=== PATIENT | female | born 1970 | race Caucasian/White ===

== ENCOUNTER 2017-11-19 06:43 | Emergency (ER) | payer OTHER, SELFPAY ==
[2017-11-19 06:50] VITALS: BP 105/67; PULSE 114; RESP 20; TEMP 36.8; O2SAT 100; BMI 24.3
[2017-11-19 07:36] LABS: Basophils % 0.1 % (0.1-2.0); Eosinophils % 0.1 % (0.1-12.0); Hematocrit 38.6 % (37.0-47.0); Lymphocytes # 0.8 K/mm3 (0.7-4.5); Lymphocytes % 3.7 K/mm3 (10-50); Mean Corpuscular HGB Conc 33.8 g/dL (31.8-35.4); Mean Corpuscular Hemoglobin 31.1 pg (27.0-31.2); Mean Platelet Volume 8.3 fl (7.4-10.4); Monocytes # 0.3 K/mm3 (0.1-1.0); Monocytes % 1.3 % (1.7-9.3); Neutrophils # 20.8 K/mm3 (1.8-7.8); Neutrophils % 94.9 % (37.0-80.0); Platelet Count 245 K/mm3 (142-424); Red Blood Count 4.19 M/mm3 (4.20-5.40); Red Cell Distribution Width 11.8 % (11.5-17.5)
[2017-11-19 07:40] LABS: White Blood Count 22.2 K/mm3 (4.8-10.8)
[2017-11-19 07:41] LABS: Alanine Aminotransferase 74 U/L (12-78); Albumin Level 3.7 gm/dL (3.4-5.0); Albumin/Globulin Ratio 0.9 (1.1-1.8); Alkaline Phosphatase 134 U/L (46-116); Amylase 40 U/L (25-125); Anion Gap 16.2 mEq/L (5-15); Aspartate Amino Transferase 31 U/L (15-37); Bilirubin,Total 1.5 mg/dL (0.2-1.0); Blood Urea Nitrogen 20 mg/dL (7-18); Calcium 9.2 mg/dL (8.5-10.1); Carbon Dioxide 23 mmol/L (21.0-32.0); Chloride 100 mmol/L (98-107); Creatinine Clearance Estimated 105 mL/min (0-300); Creatinine,Serum 0.75 mg/dL (0.55-1.02); Estimated Glomerular Filt Rate 82 ml/min (>60); GFR (African American) 100 ML/MIN (>60); Globulin 4.3 gm/dl (1.3-3.2); Glucose 134 mg/dL (74-106); Lipase 57 u/L (73-393); Potassium 3.2 mmoL/L (3.5-5.1); Sodium 136 mmol/L (136-145)
[2017-11-19 07:42] LABS: MANUAL DIFFERENTIAL MANUAL DIFFERENTIAL (MANUAL DIFF)
[2017-11-19 07:50] LABS: Microscopic, Urine URINE MICROSCOPIC (MICROSCOPIC)
[2017-11-19 07:55] LABS: Appearance,Urine SL CLOUDY (Clear); Blood, Urine 2+ (Negative); Color,Urine BROWN (Yellow); Glucose,Urine (UA) Negative (Negative); Ketones,Urine 1+ (Negative); Leukocyte Esterase,Urine 2+ (Negative); Nitrate,Urine Negative (Negative); PH,Urine 5.5 (5.0-8.5); Protein,Urine TRACE (Negative); Urine Pregnancy, HCG Qual. Negative (Negative); Urobilinogen,Urine 0.2 EU/dl (0.2)
[2017-11-19 08:04] LABS: Lymphocytes % 6 % (10-50); Monocytes % 1 % (2-9); Neutrophils % 93 % (42-76); Platelet Estimate Normal; RBC Morphology Normal; Total Cells Counted 100
[2017-11-19 08:07] LABS: Bilirubin,Urine Negative (Negative)
[2017-11-19 08:18] LABS: Bacteria,Urine 2+ /lpf; Mucus,Urine 2+ /lpf; WBC,Urine 20-50 #/hpf (0-3)
--- NOTE | 2017-11-19 08:19 | PC.NURSE ---
PT SET UP FOR PELVIC EXAM.
--- NOTE | 2017-11-19 08:31 | HMH.EDABDPAI ---
ED Disposition Clinical Impression: Abdominal pain, Enteritis Disposition: Xfer Critical Access Hosp Condition on Discharge: Good Instructions: DI for Acute Abdomen Referrals: Alexey Ashley MD [Primary Care Provider] - - Critical Care Critical Care Time: No Attestation: On 11/19/17, the high probability of a clinically significant, sudden or life threatening deterioration of the following system(s) required my full and direct attention, intervention and personal management. The time I documented below is in addition to time spent performing reported procedures but includes the following listed in this critical care notation. Medical Decision Making - Garrett Inquiry Pt receiving controlled substance: No Garrett was queried for this patient: No Vital Signs: 11/19/17 06:50 11/19/17 10:14 Temperature 98.3 F Temperature Source Oral Pulse Rate [Right Radial] 114 H 102 H Respiratory Rate 20 20 Blood Pressure [Right Arm] 105/67 107/55 Blood Pressure Mean [Right Arm] 79 72 Blood Pressure Source [Right Arm] Automatic Cuff Automatic Cuff Blood Pressure Position [Right Arm] Sitting Sitting 02 Sat by Pulse Oximetry 100 98 Oxygen Delivery Method Room Air Room Air - Lab Data Lab results reviewed: Yes: I reviewed the patient's lab results. Lab Results 11/19/17 07:05: WBC 22.2 H*, RBC 4.19 L, Hgb 13.0, Hct 38.6, MCV 92.0, MCH 31.1, MCHC 33.8, RDW 11.8, Plt Count 245, MPV 8.3, Neut % (Auto) 94.9 H, Lymph % (Auto) 3.7 L, [place] % (Auto) 1.3 L, Eos % (Auto) 0.1, Baso % (Auto) 0.1, Neut # (Auto) 20.8 H, Lymph # (Auto) 0.8, [place] # (Auto) 0.3, Eos # (Auto) 0.0, Baso # (Auto) 0.0, Total Counted 100, Neutrophils % (Manual) 93 H, Lymphocytes % (Manual) 6 L, Monocytes % (Manual) 1 L, Platelet Estimate Normal, RBC Morphology Normal 11/19/17 07:05: Sodium 136, Potassium 3.2 L, Chloride 100, Carbon Dioxide 23, Anion Gap 16.2 H, BUN 20 H, Creatinine 0.75, Estimated Creat Clear 105, Estimated GFR 82, Est GFR ( Amer) 100, Glucose 134 H, Calcium 9.2, Total Bilirubin 1.5 H, AST 31, ALT 74, Alkaline Phosphatase 134 H, Total Protein 8.0, Albumin 3.7, Globulin 4.3 H, Albumin/Globulin Ratio 0.9 L, Amylase 40, Lipase 57 L 11/19/17 07:45: Urine Color Brown, Urine Appearance Sl cloudy, Urine pH 5.5, Ur Specific [place] 1.020, Urine Protein Trace, Urine Glucose (UA) Negative, Urine Ketones 1+, Urine Blood 2+, Urine Nitrate Negative, Urine Bilirubin Negative, Urine Urobilinogen 0.2, Ur Leukocyte Esterase 2+ A, Urine RBC 10-20, Urine WBC 20-50, Ur Squamous Epith Cells 3-5, Urine Bacteria 2+, Urine Mucus 2+ 11/19/17 07:45: Urine HCG, Qual Negative 11/19/17 09:25: Lactic Acid 1.2 Result diagrams: 11/19/17 07:05 11/19/17 07:05 Orders (Tests/Meds): ED MEDICATIONS Generic Name Dose Route Start Last Admin Trade Name Freq PRN Reason Stop Dose Admin Piperacillin Sod/Tazobactam 50 mls @ 100 mls/hr 11/19/17 09:45 11/19/17 09:40 Sod 3.375 gm/ Sodium Chloride IV 12/03/17 09:44 100 mls/hr Q6H WHITNEY Administration Protocol Discontinued Medications Generic Name Dose Route Start Last Admin Trade Name Freq PRN Reason Stop Dose Admin Diatrizoate Meglum/Diatrizoate Sod 30 ml 11/19/17 09:19 11/19/17 09:27 Gastrografin 66%-10% 30ml PO 11/19/17 09:20 30 ml ONCE ONE Administration Sodium Chloride 1,000 mls @ 999 mls/hr 11/19/17 07:00 11/19/17 07:14 Sod Chlor 0.9% 1000ml Bag IV 11/19/17 08:00 999 mls/hr .Q1H1M WHITNEY Administration Iopamidol 75 ml 11/19/17 11:13 11/19/17 11:14 [id number]; 75ml Vial IV 11/19/17 11:14 75 ml ONCE ONE Administration Ketorolac Tromethamine 30 mg 11/19/17 06:58 11/19/17 07:14 Toradol 30mg/Ml Vial IV 11/19/17 06:59 30 mg ONCE ONE Administration Morphine Sulfate 2 mg 11/19/17 08:35 11/19/17 08:40 Morphine 2mg/Ml Syringe IV 11/19/17 08:36 2 mg ONCE ONE Administration Morphine Sulfate 2 mg 11/19/17 10:08 11/19/17 10:15 Morphine 2mg/Ml Syringe IV
--- NOTE | 2017-11-19 08:34 | ED_ITS ---
ED Disposition Clinical Impression: Abdominal pain, Enteritis Disposition: Xfer Critical Access Hosp Condition on Discharge: Good Instructions: DI for Acute Abdomen Referrals: Alexey Ashley MD [Primary Care Provider] - - Critical Care Critical Care Time: No Attestation: On 11/19/17, the high probability of a clinically significant, sudden or life threatening deterioration of the following system(s) required my full and direct attention, intervention and personal management. The time I documented below is in addition to time spent performing reported procedures but includes the following listed in this critical care notation. Medical Decision Making - Garrett Inquiry Pt receiving controlled substance: No Garrett was queried for this patient: No Vital Signs: 11/19/17 06:50 11/19/17 10:14 Temperature 98.3 F Temperature Source Oral Pulse Rate [Right Radial] 114 H 102 H Respiratory Rate 20 20 Blood Pressure [Right Arm] 105/67 107/55 Blood Pressure Mean [Right Arm] 79 72 Blood Pressure Source [Right Arm] Automatic Cuff Automatic Cuff Blood Pressure Position [Right Arm] Sitting Sitting 02 Sat by Pulse Oximetry 100 98 Oxygen Delivery Method Room Air Room Air - Lab Data Lab results reviewed: Yes: I reviewed the patient's lab results. Lab Results 11/19/17 07:05: WBC 22.2 H*, RBC 4.19 L, Hgb 13.0, Hct 38.6, MCV 92.0, MCH 31.1 , MCHC 33.8, RDW 11.8, Plt Count 245, MPV 8.3, Neut % (Auto) 94.9 H, Lymph % ( Auto) 3.7 L, [place] % (Auto) 1.3 L, Eos % (Auto) 0.1, Baso % (Auto) 0.1, Neut # ( Auto) 20.8 H, Lymph # (Auto) 0.8, [place] # (Auto) 0.3, Eos # (Auto) 0.0, Baso # ( Auto) 0.0, Total Counted 100, Neutrophils % (Manual) 93 H, Lymphocytes % (Manual ) 6 L, Monocytes % (Manual) 1 L, Platelet Estimate Normal, RBC Morphology Normal 11/19/17 07:05: Sodium 136, Potassium 3.2 L, Chloride 100, Carbon Dioxide 23, Anion Gap 16.2 H, BUN 20 H, Creatinine 0.75, Estimated Creat Clear 105, Estimated GFR 82, Est GFR ( Amer) 100, Glucose 134 H, Calcium 9.2, Total Bilirubin 1.5 H, AST 31, ALT 74, Alkaline Phosphatase 134 H, Total Protein 8.0, Albumin 3.7, Globulin 4.3 H, Albumin/Globulin Ratio 0.9 L, Amylase 40, Lipase 57 L 11/19/17 07:45: Urine Color Brown, Urine Appearance Sl cloudy, Urine pH 5.5, Ur Specific [place] 1.020, Urine Protein Trace, Urine Glucose (UA) Negative, Urine Ketones 1+, Urine Blood 2+, Urine Nitrate Negative, Urine Bilirubin Negative, Urine Urobilinogen 0.2, Ur Leukocyte Esterase 2+ A, Urine RBC 10-20, Urine WBC 20-50, Ur Squamous Epith Cells 3-5, Urine Bacteria 2+, Urine Mucus 2+ 11/19/17 07:45: Urine HCG, Qual Negative 11/19/17 09:25: Lactic Acid 1.2 Result diagrams: 11/19/17 07:05 11/19/17 07:05 Orders (Tests/Meds): ED MEDICATIONS Generic Name Dose Route Start Last Admin Trade Name Freq PRN Reason Stop Dose Admin Piperacillin Sod/Tazobactam 50 mls @ 100 mls/hr 11/19/17 09:45 11/19/17 09:40 Sod 3.375 gm/ Sodium Chloride IV 12/03/17 09:44 100 mls/hr Q6H WHITNEY Administration Protocol Discontinued Medications Generic Name Dose Route Start Last Admin Trade Name Freq PRN Reason Stop Dose Admin Diatrizoate Meglum/Diatrizoate Sod 30 ml 11/19/17 09:19 11/19/17 09:27 Gastrografin 66%-10% 30ml PO 11/19/17 09:20 30 ml ONCE ONE Administration Sodium Chloride 1,000 mls @ 999 mls/hr 11/19/17 07:00 11/19/17 07:14 Sod Chlor 0.9%
--- NOTE | 2017-11-19 08:36 | US_ITS ---
US transvaginal HISTORY: Pelvic pain ITS.REASON: PID r/o abcess ORDERING PHYSICIAN: Senthil Mckeon MD PATIENT AGE: 47 years COMPARISON: None FINDINGS: The uterus is 7 x 4 x 5 cm with a combined endometrial thickness of 4 mm. There are 2 heterogeneous areas of echogenicity within the uterus one in the body posteriorly at 2.7 x 1.4 cm and one in the fundus anteriorly at 2 x 2 cm consistent with fibroids. Nabothian cyst is present in the cervix at 12 mm. The left ovary is 2.5 x 1.8 cm and contains a 0.8 cm cyst. The right ovary is 18 x 19 mm and contains small follicles measuring up to 8 mm. There is complex decreased echogenicity in the right lower quadrant probably corresponding fluid-containing bowel with thickened wall. CT scan suggested for more thorough evaluation. Cannot exclude abscess. IMPRESSION: 1. Uterine fibroids. 2. Small bilateral ovarian follicles. 3. Complex decreased echogenicity in the right lower quadrant probably corresponding fluid-containing bowel with thickened wall. CT scan suggested for more thorough evaluation. Cannot exclude abscess.
--- NOTE | 2017-11-19 09:18 | CT_ITS ---
CT abdomen pelvis w con CLINICAL INDICATION: Right lower quadrant pain and tenderness, abnormal pelvic ultrasound with bowel thickening versus abscess in the right lower quadrant ITS.REASON: bowel inflamation on US per rads ORDERING PHYSICIAN: Senthil Mckeon MD PATIENT AGE: 47 years COMPARISON: CT scan of 02/16/2016 TECHNIQUE: Axial images obtained with sagittal and coronal reformats. All CT scans at the facility use one or more dose reduction, viz: automated exposure control; ma/kV adjustment per patient size (including targeted exams where dose is matched to indication; i.e. head); or iterative reconstruction technique. PROCEDURE: Oral Contrast: Gastroview IV Contrast: 75 mL's of [id number]. FINDINGS: Lung bases are clear. The spleen, adrenal glands, and pancreas are unremarkable. There has been prior cholecystectomy. No ductal dilatation. There is a 5 mm isodense in the right hepatic lobe posteriorly nonspecific too small to categorize and may be due to small cyst. Duodenal diverticulum projects medially toward the head of the pancreas consistent with an incidental finding. No renal mass or hydronephrosis. There are nonobstructing bilateral punctate renal calculi measuring up to 4 mm in the lower pole on the right and 4 mm in the mid polar region on the left. There is a 10 mm isodensity involving the antra aspect of the left kidney probably due to small cyst. No ureteral calculi. Unremarkable appendix. There is thickening of the small bowel loops involving the distal and terminal ileum corresponding to the abnormality noted on the ultrasound. No abscess is evident. There is a small amount fluid in the pelvis. There is mild thickening also involving the jejunum in the upper abdomen There is mild chronic wedging involving L1 and there is an old defect within the proximal right femur from prior prosthesis. IMPRESSION: 1. There is thickening of the distal end terminal ileum consistent with enteritis could be infectious or inflammatory. There is also mild thickening of the jejunum in the upper abdomen. Normal amount fluid in the pelvis 2. No abscess. 3. Unremarkable appendix. 4. Nonobstructing bilateral renal calculi
[2017-11-19 09:56] LABS: Lactic Acid 1.2 mmol/L (0.4-2.0)
[2017-11-19 10:14] VITALS: BP 107/55; PULSE 102; RESP 20; O2SAT 98
--- NOTE | 2017-11-19 12:25 | PC.NURSE ---
DR PRADHAN PHONE WITH DR MARTEL AT AT THIS TIME
[2017-11-19 14:17] VITALS: BP 91/64; PULSE 100; RESP 20; TEMP 37.3; O2SAT 100
[2017-11-19 14:39] VITALS: BP 91/54; PULSE 62; RESP 20; TEMP 36.4; O2SAT 97
[2017-11-23 15:38] LABS: Neisseria gonorrhoeae, NAA Positive (Negative)
== END 2017-11-19 14:41 | disposition short-term general hospital (02) ==
PROVIDERS: Emergency Medicine; Emergency Provider Family Medicine; Family Provider Family Medicine; PCP Family Medicine
DX: K52.9 Noninfective gastroenteritis and colitis, unspecified (principal); N30.00 Acute cystitis without hematuria; B96.20 Unspecified Escherichia coli [E. coli] as the cause of diseases classified elsewhere
CPT/HCPCS: 36415; 74177; 76830; 80053; 81001; 81025; 82150; 83605; 83690; 85007; 85025; 87040; 87086; 87088; 87186; 87210; 87220; 87491; 87591; 96365; 96366; 96367; 96375; 96376; 99285; J2405; J2543; Q9967

== ENCOUNTER 2017-11-22 17:07 | Observation (INO) | payer OTHER, SELFPAY ==
[2017-11-22 17:23] VITALS: RESP 18; O2SAT 95; BMI 24.3
--- NOTE | 2017-11-22 17:53 | HMH.EDNVD ---
ED Disposition Clinical Impression: Enteritis, Dehydration Intractable nausea and vomiting Qualifiers: Vomiting type: unspecified Qualified Code(s): R11.2 - Nausea with vomiting, unspecified UTI (urinary tract infection) Qualifiers: Urinary tract infection type: site unspecified Hematuria presence: without hematuria Qualified Code(s): N39.0 - Urinary tract infection, site not specified Disposition: Still a Patient Condition on Discharge: Serious Referrals: Alxeey Ashley MD [Primary Care Provider] - Time of Disposition: 18:50 - Critical Care Critical Care Time: No Attestation: On 11/22/17, the high probability of a clinically significant, sudden or life threatening deterioration of the following system(s) required my full and direct attention, intervention and personal management. The time I documented below is in addition to time spent performing reported procedures but includes the following listed in this critical care notation. Medical Decision Making - Medical Records Medical records reviewed: Yes: I reviewed the patient's medical records. - Garrett Inquiry Pt receiving controlled substance: No Vital Signs: 11/22/17 17:23 Respiratory Rate 18 02 Sat by Pulse Oximetry 95 Oxygen Delivery Method Room Air - Lab Data Lab results reviewed: Yes: I reviewed the patient's lab results. Lab Results 11/22/17 17:45: WBC 8.9, RBC 3.72 L, Hgb 11.3 L, Hct 34.7 L, MCV 93.5, MCH 30.5, MCHC 32.6, RDW 11.9, Plt Count 235, MPV 9.4, Neut % (Auto) 89.5 H, Lymph % (Auto) 6.6 L, [place] % (Auto) 3.6, Eos % (Auto) 0.2, Baso % (Auto) 0.1, Neut # (Auto) 7.9 H, Lymph # (Auto) 0.6 L, [place] # (Auto) 0.3, Eos # (Auto) 0.0, Baso # (Auto) 0.0, Total Counted 100, Neutrophils % (Manual) 92 H, Lymphocytes % (Manual) 5 L, Monocytes % (Manual) 3, Platelet Estimate Normal 11/22/17 17:45: Sodium 145, Potassium 3.1 L, Chloride 106, Carbon Dioxide 26, Anion Gap 16.1 H, BUN 18, Creatinine 0.71, Estimated Creat Clear 111, Estimated GFR 88, Est GFR ( Amer) 106, Glucose 148 H, Calcium 9.3, Total Bilirubin 0.6, AST 16, ALT 52, Alkaline Phosphatase 166 H, Total Protein 7.6, Albumin 3.0 L, Globulin 4.6 H, Albumin/Globulin Ratio 0.7 L, Amylase 36, Lipase 74 Result diagrams: 11/22/17 17:45 11/22/17 17:45 Orders (Tests/Meds): ED MEDICATIONS Generic Name Dose Route Start Last Admin Trade Name Freq PRN Reason Stop Dose Admin Sodium Chloride 1,000 mls @ 999 mls/hr 11/22/17 18:45 Sod Chlor 0.9% 1000ml Bag IV 11/22/17 19:45 .Q1H1M WHITNEY Ketorolac Tromethamine 30 mg 11/22/17 19:00 Toradol 30mg/Ml Vial IV 12/22/17 18:59 Q6H PRN pain Discontinued Medications Generic Name Dose Route Start Last Admin Trade Name Freq PRN Reason Stop Dose Admin Ketorolac Tromethamine 30 mg 11/22/17 17:54 11/22/17 18:38 Toradol 30mg/Ml Vial IV 11/22/17 17:55 30 mg ONCE ONE Administration Morphine Sulfate 2 mg 11/22/17 18:09 11/22/17 18:10 Morphine 2mg/2ml Syringe IV 11/22/17 18:10 2 mg ONCE ONE Administration Promethazine HCl 25 mg 11/22/17 17:52 11/22/17 18:08 Phenergan 25mg/Ml 1ml Vial IV 11/22/17 17:53 25 mg ONCE ONE Administration Promethazine HCl 25 mg 11/22/17 18:39 11/22/17 18:40 Phenergan 25mg/Ml 1ml Vial IV 11/22/17 18:40 25 mg ONCE ONE Administration Sodium Chloride 25 ml 11/22/17 17:52 11/22/17 18:08 Sod Chlor 0.9% 25ml Bag IV 11/22/17 17:53 25 ml ONCE ONE Administration Sodium Chloride 25 ml 11/22/17 18:39 11/22/17 18:40 Sod Chlor 0.9% 25ml Bag IV 11/22/17 18:40 25 ml ONCE ONE Administration ORDERS Category Date Time Status Lactic Acid Stat Lab 11/22/17 17:54 Ordered UDS [Drug Screen,Urine] Stat Lab 11/22/17 17:39 Ordered Urinalysis and Microscopic Stat Lab 11/22/17 17:38 Ordered Urine , HCG Qual Stat Lab 11/22/17 17:38 Ordered Blood Culture Stat Micro 11/22/17 17:53 Ordered Urine Culture Stat Micro 11/22/17 17
[2017-11-22 17:55] LABS: Basophils % 0.1 % (0.1-2.0); Eosinophils % 0.2 % (0.1-12.0); Hematocrit 34.7 % (37.0-47.0); Hemoglobin 11.3 g/dL (12.2-16.2); Lymphocytes # 0.6 K/mm3 (0.7-4.5); Lymphocytes % 6.6 K/mm3 (10-50); Mean Corpuscular HGB Conc 32.6 g/dL (31.8-35.4); Mean Corpuscular Hemoglobin 30.5 pg (27.0-31.2); Mean Corpuscular Volume 93.5 fl (81-99); Mean Platelet Volume 9.4 fl (7.4-10.4); Monocytes # 0.3 K/mm3 (0.1-1.0); Monocytes % 3.6 % (1.7-9.3); Neutrophils # 7.9 K/mm3 (1.8-7.8); Neutrophils % 89.5 % (37.0-80.0); Platelet Count 235 K/mm3 (142-424); Red Blood Count 3.72 M/mm3 (4.20-5.40); Red Cell Distribution Width 11.9 % (11.5-17.5); White Blood Count 8.9 K/mm3 (4.8-10.8)
--- NOTE | 2017-11-22 17:56 | ED_ITS ---
ED Disposition Clinical Impression: Enteritis, Dehydration Intractable nausea and vomiting Qualifiers: Vomiting type: unspecified Qualified Code(s): R11.2 - Nausea with vomiting, unspecified UTI (urinary tract infection) Qualifiers: Urinary tract infection type: site unspecified Hematuria presence: without hematuria Qualified Code(s): N39.0 - Urinary tract infection, site not specified Disposition: Still a Patient Condition on Discharge: Serious Referrals: Alexey Ashley MD [Primary Care Provider] - Time of Disposition: 18:50 - Critical Care Critical Care Time: No Attestation: On 11/22/17, the high probability of a clinically significant, sudden or life threatening deterioration of the following system(s) required my full and direct attention, intervention and personal management. The time I documented below is in addition to time spent performing reported procedures but includes the following listed in this critical care notation. Medical Decision Making - Medical Records Medical records reviewed: Yes: I reviewed the patient's medical records. - Garrett Inquiry Pt receiving controlled substance: No Vital Signs: 11/22/17 17:23 Respiratory Rate 18 02 Sat by Pulse Oximetry 95 Oxygen Delivery Method Room Air - Lab Data Lab results reviewed: Yes: I reviewed the patient's lab results. Lab Results 11/22/17 17:45: WBC 8.9, RBC 3.72 L, Hgb 11.3 L, Hct 34.7 L, MCV 93.5, MCH 30.5 , MCHC 32.6, RDW 11.9, Plt Count 235, MPV 9.4, Neut % (Auto) 89.5 H, Lymph % ( Auto) 6.6 L, [place] % (Auto) 3.6, Eos % (Auto) 0.2, Baso % (Auto) 0.1, Neut # ( Auto) 7.9 H, Lymph # (Auto) 0.6 L, [place] # (Auto) 0.3, Eos # (Auto) 0.0, Baso # ( Auto) 0.0, Total Counted 100, Neutrophils % (Manual) 92 H, Lymphocytes % (Manual ) 5 L, Monocytes % (Manual) 3, Platelet Estimate Normal 11/22/17 17:45: Sodium 145, Potassium 3.1 L, Chloride 106, Carbon Dioxide 26, Anion Gap 16.1 H, BUN 18, Creatinine 0.71, Estimated Creat Clear 111, Estimated GFR 88, Est GFR ( Amer) 106, Glucose 148 H, Calcium 9.3, Total Bilirubin 0.6, AST 16, ALT 52, Alkaline Phosphatase 166 H, Total Protein 7.6, Albumin 3.0 L, Globulin 4.6 H, Albumin/Globulin Ratio 0.7 L, Amylase 36, Lipase 74 Result diagrams: 11/22/17 17:45 11/22/17 17:45 Orders (Tests/Meds): ED MEDICATIONS Generic Name Dose Route Start Last Admin Trade Name Freq PRN Reason Stop Dose Admin Sodium Chloride 1,000 mls @ 999 mls/hr 11/22/17 18:45 Sod Chlor 0.9% 1000ml Bag IV 11/22/17 19:45 .Q1H1M WHITNEY Ketorolac Tromethamine 30 mg 11/22/17 19:00 Toradol 30mg/Ml Vial IV 12/22/17 18:59 Q6H PRN pain Discontinued Medications Generic Name Dose Route Start Last Admin Trade Name Freq PRN Reason Stop Dose Admin Ketorolac Tromethamine 30 mg 11/22/17 17:54 11/22/17 18:38 Toradol 30mg/Ml Vial IV 11/22/17 17:55 30 mg ONCE ONE Administration Morphine Sulfate 2 mg 11/22/17 18:09 11/22/17 18:10 Morphine 2mg/2ml Syringe IV 11/22/17 18:10 2 mg ONCE ONE Administration Promethazine HCl 25 mg 11/22/17 17:52 11/22/17 18:08 Phenergan 25mg/Ml 1ml Vial IV 11/22/17 17:53 25 mg ONCE ONE Administration Promethazine HCl 25 mg 11/22/17 18:39 11/22/17 18:40 Phenergan 25mg/Ml 1ml Vial IV 11/22/17 18:40 25 mg ONCE ONE Administration Sodium Ch
[2017-11-22 18:04] LABS: Alanine Aminotransferase 52 U/L (12-78); Albumin/Globulin Ratio 0.7 (1.1-1.8); Alkaline Phosphatase 166 U/L (46-116); Amylase 36 U/L (25-125); Anion Gap 16.1 mEq/L (5-15); Aspartate Amino Transferase 16 U/L (15-37); Bilirubin,Total 0.6 mg/dL (0.2-1.0); Blood Urea Nitrogen 18 mg/dL (7-18); Calcium 9.3 mg/dL (8.5-10.1); Carbon Dioxide 26 mmol/L (21.0-32.0); Chloride 106 mmol/L (98-107); Creatinine Clearance Estimated 111 mL/min (0-300); Creatinine,Serum 0.71 mg/dL (0.55-1.02); Estimated Glomerular Filt Rate 88 ml/min (>60); GFR (African American) 106 ML/MIN (>60); Globulin 4.6 gm/dl (1.3-3.2); Glucose 148 mg/dL (74-106); Lipase 74 u/L (73-393); Potassium 3.1 mmoL/L (3.5-5.1); Sodium 145 mmol/L (136-145); Total Protein,Serum 7.6 gm/dL (6.4-8.2)
[2017-11-22 18:08] LABS: MANUAL DIFFERENTIAL MANUAL DIFFERENTIAL (MANUAL DIFF)
[2017-11-22 18:58] LABS: Lymphocytes % 5 % (10-50); Monocytes % 3 % (2-9); Neutrophils % 92 % (42-76); Total Cells Counted 100
[2017-11-22 18:59] LABS: Platelet Estimate Normal
--- NOTE | 2017-11-22 20:00 | PC.NURSE ---
Called report to [facility]
[2017-11-22 20:33] VITALS: BMI 24.3
[2017-11-22 20:45] VITALS: BP 133/73; PULSE 70; RESP 16; TEMP 37.8; O2SAT 94; BMI 25.1
[2017-11-22 20:53] VITALS: BP 120/60; PULSE 73; RESP 14; TEMP 37.3; O2SAT 96
[2017-11-22 21:07] LABS: Lactic Acid 1.1 mmol/L (0.4-2.0)
[2017-11-22 23:25] LABS: Microscopic, Urine URINE MICROSCOPIC (MICROSCOPIC)
[2017-11-22 23:29] LABS: Appearance,Urine CLEAR (Clear); Bilirubin,Urine Negative (Negative); Blood, Urine Negative (Negative); Color,Urine YELLOW (Yellow); Glucose,Urine (UA) Negative (Negative); Ketones,Urine 3+ (Negative); Leukocyte Esterase,Urine Negative (Negative); Nitrate,Urine Negative (Negative); Protein,Urine TRACE (Negative); Specific Gravity, Urine 1.025 (1.005-1.030); Urobilinogen,Urine 0.2 EU/dl (0.2)
[2017-11-22 23:36] LABS: Amphetamine/Metha Screen,Urine Negative ng/mL (<1000); Barbiturates Screen,Urine Negative ng/mL (<200); Benzodiazepines Screen,Urine Negative ng/mL (200); Cannabinoid Screen,Urine Positive ng/mL (<50); Cocaine Screen,Urine Negative ng/g (<300); Methadone Screen,Urine Negative ng/mL (<300); Opiate Screen,Urine Positive ng/mL (<300); Phencyclidine Screen,Urine Negative ng/mL (<25)
[2017-11-22 23:49] LABS: Urine Pregnancy, HCG Qual. Negative (Negative)
[2017-11-23 01:45] LABS: Bacteria,Urine Trace /lpf; RBC,Urine Occasional #/hpf (0-3); Squamous Epithelial Cell,Urine Occasional #/hpf (0-5)
[2017-11-23 04:04] VITALS: BP 126/64; PULSE 72; RESP 16; TEMP 37.4; O2SAT 94
--- NOTE | 2017-11-23 04:15 | PC.NURSE ---
Patient was a new admit this shift. Complaints of n/v/d. Is dehydrated and has a uti. Spouse states vomiting has been almost constant since yesterday. States was at on Wednesday, pt was started on antibiotics. Has had abdominal pain this shift. Vomited one time. Has had Toradol, Tylenol, Zofran and Phenergan. Pt is resting at this time. Lungs are clear, resp even and non labored. Abd is tender. Strong pulses, cap refill < 3 sec. Iv is patent, states has no needs at this time. Educated on all medication and pain management. Bed locked in low position, side rails up x 2, call light within reach. Encouraged to call staff if any needs.
[2017-11-23 07:37] VITALS: BP 121/53; PULSE 72; RESP 18; TEMP 37.8; O2SAT 98
--- NOTE | 2017-11-23 08:05 | HMH.HPDC ---
General - General Admission date: 11/22/17 Discharge date: 11/23/17 *Admission Date: 11/23/17 *Chief complaint: Nausea/vomiting/urinary tract infection *History of present illness: 47-year-old white female with significant urinary tract infection who was transferred from this emergency department to the [facility] emergency department for uncertain reasons the last visit here and then was discharged from with triple antibiotic therapy including Flagyl, for enteritis. She has been home and not feeling much better. Came back to the emergency department last night, culture has returned from her original visit here showing E. coli, sensitive to fluoroquinolones. She had vomiting and mild dehydration. She was placed in observation status for IV fluids and an initial treatment of Levaquin intravenously. This morning she is feeling better, has been able to keep down clear liquids. Has had one episode of vomiting through the night, less pain. And is wishing to be discharged. [facility] History Medical History: Reports:: Arrhythmia Denies:: Cancer, Diabetes Mellitus Type 1, Diabetes Mellitus Type 2, MRSA Other Surgeries: Yes: Cholecystectomy Amputation: No Fractures: No - *Social History Educational Level: Completed College Smoking Status: Never smoker Alcohol Intake: never Substance Use Type: marijuana Occupational Status: employed Housing: house Household Members: spouse - Psychiatric History Expresses thoughts of harming self/others: None Suicide Plan Description: No Plan Review of Systems - Review of Systems Review of systems:: unable to obtain, other, pertinent systems reviewed and negative unless documented below Exam Vital signs and Labs for Last 24 Hours: Temp Pulse Resp BP Pulse Ox 100.0 F H 72 18 121/53 98 11/23/17 07:37 11/23/17 07:37 11/23/17 07:37 11/23/17 07:37 11/23/17 07:37 Laboratory Results - last 24 hr 11/22/17 23:18: Urine HCG, Qual Negative 11/22/17 23:18: Urine Opiates Screen Positive H, Ur Barbituates Screen Negative, Ur Phencyclidine Scrn Negative, Ur Amphetamines Screen Negative, U Methamphetamines Scrn Negative, U Benzodiazepines Scrn Negative, Urine Cocaine Screen Negative, U Marijuana (THC) Screen Positive H 11/22/17 23:23: Urine Color Yellow, Urine Appearance Clear, Urine pH 6.0, Ur Specific [place] 1.025, Urine Protein Trace, Urine Glucose (UA) Negative, Urine Ketones 3+, Urine Blood Negative, Urine Nitrate Negative, Urine Bilirubin Negative, Urine Urobilinogen 0.2, Ur Leukocyte Esterase Negative, Urine RBC Occasional, Urine WBC 5-10, Ur Squamous Epith Cells Occasional, Urine Bacteria Trace I & O for Last 24 hours: Intake & Output 11/20/17 11/21/17 11/22/17 11/23/17 11:59 11:59 11:59 11:59 Intake Total 1083 / 1083 Output Total 400 / 400 Balance 683 / 683 Narrative: Patient is sitting up in bed, pleasant, alert. No distress. Lungs are clear, heart rate regular, minimal CVA tenderness. Abdomen is soft, no edema or clubbing. Hospital Course Hospital Course: Patient admitted overnight, feels better. Patient will be charged home with levofloxacin, she will continue her Flagyl, she has Zofran at home. Follow-up as scheduled. Results Labs on day of discharge: Labs from last 24 hours 11/22/17 11/22/17 11/22/17 23:23 23:18 23:18 Urine Color Yellow Urine Appearance Clear Urine pH 6.0 Ur Specific [place] 1.025 Urine Protein Trace Urine Glucose (UA) Negative Urine Ketones 3+ Urine Blood Negative Urine Nitrate Negative Urine Bilirubin Negative Urine Urobilinogen 0.2 Ur Leukocyte Esterase Negative Urine RBC Occasional Urine WBC 5-10 Ur Squamous Epith Cells Occasional Urine Bacteria Trace Urine HCG, Qual Negative Urine Opiates Screen Positive H Ur Barbituates Screen Negative Ur Phencyclidine Scrn Negative Ur Amphetamines Screen Negative U Methamphetamines Scrn Nega
--- NOTE | 2017-11-23 08:09 | P.HPDS_ITS ---
General - General Admission date: 11/22/17 Discharge date: 11/23/17 *Admission Date: 11/23/17 *Chief complaint: Nausea/vomiting/urinary tract infection *History of present illness: 47-year-old white female with significant urinary tract infection who was transferred from this emergency department to the [facility] emergency department for uncertain reasons the last visit here and then was discharged from with triple antibiotic therapy including Flagyl, for enteritis. She has been home and not feeling much better. Came back to the emergency department last night, culture has returned from her original visit here showing E. coli, sensitive to fluoroquinolones. She had vomiting and mild dehydration. She was placed in observation status for IV fluids and an initial treatment of Levaquin intravenously. This morning she is feeling better, has been able to keep down clear liquids. Has had one episode of vomiting through the night, less pain. And is wishing to be discharged. [facility] History Medical History: Reports:: Arrhythmia Denies:: Cancer, Diabetes Mellitus Type 1, Diabetes Mellitus Type 2, MRSA Other Surgeries: Yes: Cholecystectomy Amputation: No Fractures: No - *Social History Educational Level: Completed College Smoking Status: Never smoker Alcohol Intake: never Substance Use Type: marijuana Occupational Status: employed Housing: house Household Members: spouse - Psychiatric History Expresses thoughts of harming self/others: None Suicide Plan Description: No Plan Review of Systems - Review of Systems Review of systems:: unable to obtain, other, pertinent systems reviewed and negative unless documented below Exam Vital signs and Labs for Last 24 Hours: Temp Pulse Resp BP Pulse Ox 100.0 F H 72 18 121/53 98 11/23/17 07:37 11/23/17 07:37 11/23/17 07:37 11/23/17 07:37 11/23/17 07:37 Laboratory Results - last 24 hr 11/22/17 23:18: Urine HCG, Qual Negative 11/22/17 23:18: Urine Opiates Screen Positive H, Ur Barbituates Screen Negative , Ur Phencyclidine Scrn Negative, Ur Amphetamines Screen Negative, U Methamphetamines Scrn Negative, U Benzodiazepines Scrn Negative, Urine Cocaine Screen Negative, U Marijuana (THC) Screen Positive H 11/22/17 23:23: Urine Color Yellow, Urine Appearance Clear, Urine pH 6.0, Ur Specific Shirley 1.025, Urine Protein Trace, Urine Glucose (UA) Negative, Urine Ketones 3+, Urine Blood Negative, Urine Nitrate Negative, Urine Bilirubin Negative, Urine Urobilinogen 0.2, Ur Leukocyte Esterase Negative, Urine RBC Occasional, Urine WBC 5-10, Ur Squamous Epith Cells Occasional, Urine Bacteria Trace I & O for Last 24 hours: Intake & Output 11/20/17 11/21/17 11/22/17 11/23/17 11:59 11:59 11:59 11:59 Intake Total 1083 / 1083 Output Total 400 / 400 Balance 683 / 683 Narrative: Patient is sitting up in bed, pleasant, alert. No distress. Lungs are clear, heart rate regular, minimal CVA tenderness. Abdomen is soft, no edema or clubbing. Hospital Course Hospital Course: Patient admitted overnight, feels better. Patient will be charged home with levofloxacin, she will continue her Flagyl, she has Zofran at home. Follow-up as scheduled. Results Labs on day of discharge: Labs from last 24 hours 11/22/17 11/22/17 11/22/17 23:23 23:18 23:18 Urine Color Yellow Urine Appearance Clear Urine pH 6.0 Ur Specifi
== END 2017-11-23 12:30 | disposition home or self-care (01) ==
LOC: ER 17:56 → 2ND 21:02
PROVIDERS: Admitting Provider Internal Medicine Adolescent Medicine; Emergency Provider Emergency Medicine; Family Provider Family Medicine; PCP Family Medicine; Visit Provider Internal Medicine Adolescent Medicine
DX: K52.9 Noninfective gastroenteritis and colitis, unspecified (principal); E86.0 Dehydration; R11.2 Nausea with vomiting, unspecified; N39.0 Urinary tract infection, site not specified; B96.29 Other Escherichia coli [E. coli] as the cause of diseases classified elsewhere
CPT/HCPCS: 36415; 80053; 80305; 81001; 81025; 82150; 83605; 83690; 85007; 85025; 96365; 96375; 96376; 99284; G0378; J1956; J2405